=== PATIENT | male | born 1950 | race American Indian/Alaskan Native ===

== ENCOUNTER → 2017-07-13 | Outpatient (CLI) | payer MEDICARE | LOC: SLR 07-12 11:00 | PROVIDERS: ATTEND Internal Medicine | DX: G47.30 Sleep apnea, unspecified (principal); R40.0 Somnolence; E66.9 Obesity, unspecified; I10 Essential (primary) hypertension | CPT/HCPCS: G0399 ==

== ENCOUNTER 2017-08-29 11:00 | Outpatient (CLI) | payer MEDICARE | END 2017-08-29 11:01 | disposition home or self-care (01) | LOC: SLR 11:00 | PROVIDERS: ATTEND Otolaryngology | DX: G47.33 Obstructive sleep apnea (adult) (pediatric) (principal) | CPT/HCPCS: 95811 ==